=== PATIENT | female | born 1995 | race Caucasian/White ===

== ENCOUNTER 2017-08-12 16:01 | Emergency (ER) | payer MEDICAID ==
[~2017-08-12] VITALS: Ht 157.5 cm; Wt 79.0 kg
[2017-08-12 16:27] VITALS: BP 120/82
== END 2017-08-12 18:38 | disposition left against medical advice (07) ==
LOC: ER 16:34
DX: J02.9 Acute pharyngitis, unspecified (principal); R05 Cough; Z53.21 Procedure and treatment not carried out due to patient leaving prior to being seen by health care provider

== ENCOUNTER 2017-08-13 16:47 | Emergency (ER) | payer MEDICAID ==
[~2017-08-13] VITALS: Ht 157.5 cm; Wt 57.0 kg
[2017-08-13 19:16] LABS: CLARITY URINE CLOUDY (CLEAR); COLOR URINE YELLOW (YELLOW); KETONES URINE TRACE (NEGATIVE); LEUKOCYTE ESTERASE URINE 2+ (NEGATIVE); NITRITE URINE NEGATIVE (NEGATIVE); OCCULT BLOOD URINE 3+ (NEGATIVE); PROTEIN URINE 1+ (NEGATIVE); UROBILINOGEN URINE 0.2 E.U./dL (0.2-1.0)
[2017-08-13] MEDS ORDERED: IPRATROPIUM BROMIDE (0.02%) 0.5MG/2.5ML NEB HHN STA (19:31)
[2017-08-13] MEDS ORDERED: ALBUTEROL (0.083%) 2.5MG/3ML NEB HHN STA (19:31)
[2017-08-13 21:24] VITALS: BP 105/67
== END 2017-08-13 21:24 | disposition home or self-care (01) ==
LOC: ER 17:32
DX: J02.8 Acute pharyngitis due to other specified organisms (principal); B97.89 Other viral agents as the cause of diseases classified elsewhere; N39.0 Urinary tract infection, site not specified; R31.0 Gross hematuria; J45.909 Unspecified asthma, uncomplicated
CPT/HCPCS: 81001; 87070; 87430; 94640; 99284; J7611